=== PATIENT | male | born 1995 | race African-American/Black ===

== ENCOUNTER 2020-11-22 23:37 | Emergency (ER) | payer OTHER ==
[~2020-11-22] VITALS: Ht 170.2 cm; Wt 90.7 kg
[2020-11-23 01:45] VITALS: BP 138/91; TEMP 98.9
== END 2020-11-23 01:45 | disposition home or self-care (01) ==
LOC: ED 23:37
PROC: 0RSJXZZ Reposition Right Shoulder Joint, External Approach (ICD-10-PCS; principal; 2020-11-22)
DX: S43.084A Other dislocation of right shoulder joint, initial encounter (principal); W17.89XA Other fall from one level to another, initial encounter; Y93.89 Activity, other specified; Y92.89 Other specified places as the place of occurrence of the external cause
CPT/HCPCS: 36415; 96360; 96375; 96376; 99284; J1885; J2270; J2405; J3490